=== PATIENT | male | born 1975 | race Caucasian/White ===

== ENCOUNTER 2018-10-14 11:00 | Inpatient (IN) | payer SELFPAY ==
[~2018-10-14] VITALS: Ht 172.7 cm; Wt 97.1 kg
[2018-10-14 11:13] VITALS: Ht 172.7 cm; Wt 97.1 kg
[2018-10-14 13:30] LABS: BASOPHIL % 0.2 % (0-2); PLATELET COUNT 236 x10^3mcL (130-400); RED CELL DISTRIBUTION WIDTH 12.9 % (11.5-14.5)
[2018-10-14 13:47] LABS: CALCIUM 8.7 mg/dL (8.5-10.1); CARBON DIOXIDE 26.2 mmol/L (21-32); CHLORIDE SERUM 91 mmol/L (98-107); GFR1 > 60 mL/min; GLUCOSE SERUM 144 mg/dL (74-106); POTASSIUM SERUM 3.4 mmol/L (3.5-5.1); SODIUM SERUM 128 mmol/L (136-145)
[2018-10-14 13:57] LABS: ALKALINE PHOSPHATASE 85 U/L (46-116); ALT/SGPT 94 U/L (16-63); AST/SGOT 65 U/L (15-37); BILIRUBIN TOTAL 0.8 mg/dL (0.20-1.00)
[2018-10-14 13:58] LABS: ALBUMIN 3.3 g/dL (3.4-5.0); TOTAL PROTEIN, SERUM 8.3 g/dL (6.4-8.2)
[2018-10-14 14:27] LABS: microscopic required? YES; urine erythrocyte 2+ (NEGATIVE)
[2018-10-14 16:32] LABS: MAGNESIUM 2.4 mg/dL (1.8-2.4)
[2018-10-14 16:33] LABS: AMPHETAMINE QUAL UR NONE DETECTED (See below)
[2018-10-14 17:01] VITALS: BP 131/89
[2018-10-14 22:00] VITALS: BP 117/70
[2018-10-15 06:37] LABS: CALCIUM 8.4 mg/dL (8.5-10.1); CARBON DIOXIDE 25.4 mmol/L (21-32); CHLORIDE SERUM 102 mmol/L (98-107); CREATININE SERUM 0.9 mg/dL (0.7-1.3); GFR1 > 60 mL/min; GLUCOSE SERUM 154 mg/dL (74-106); MAGNESIUM 2.6 mg/dL (1.8-2.4); PHOSPHOROUS 3.1 mg/dL (2.5-4.9); POTASSIUM SERUM 4.3 mmol/L (3.5-5.1); SODIUM SERUM 137 mmol/L (136-145)
[2018-10-15 06:59] LABS: BASOPHIL % 0.2 % (0-2); PLATELET COUNT 223 x10^3mcL (130-400); RED CELL DISTRIBUTION WIDTH 13.1 % (11.5-14.5)
[2018-10-15 08:46] VITALS: BP 121/84
[2018-10-15 16:39] VITALS: BP 131/97
[2018-10-15 19:15] VITALS: BP 128/88
[2018-10-16 05:19] VITALS: BP 127/81
[2018-10-16 06:45] LABS: CALCIUM 8.8 mg/dL (8.5-10.1); CARBON DIOXIDE 25.5 mmol/L (21-32); CHLORIDE SERUM 103 mmol/L (98-107); CREATININE SERUM 0.7 mg/dL (0.7-1.3); GFR1 > 60 mL/min; GLUCOSE SERUM 125 mg/dL (74-106); MAGNESIUM 2.3 mg/dL (1.8-2.4); PHOSPHOROUS 3.8 mg/dL (2.5-4.9); POTASSIUM SERUM 3.8 mmol/L (3.5-5.1); SODIUM SERUM 136 mmol/L (136-145)
[2018-10-16 07:51] LABS: BASOPHIL % 0.3 % (0-2); PLATELET COUNT 266 x10^3mcL (130-400); RED CELL DISTRIBUTION WIDTH 13.3 % (11.5-14.5)
[2018-10-16 08:41] VITALS: BP 134/92
[2018-10-16] MEDS ORDERED: LEVAQUIN750 MG PO (10:22)
[2018-10-16] MEDS ORDERED: CHILDREN'S ROB118 M1 PO (10:25)
[2018-10-16 11:03] VITALS: BP 134/92
[2018-10-16 15:17] VITALS: BP 135/97
== END 2018-10-16 17:19 | disposition home or self-care (01) | DRG 194 ==
LOC: ED 11:00 → MU 14:50
PROVIDERS: Emergency Medicine; ADMIT Family Medicine
DX: J18.9 Pneumonia, unspecified organism (principal); E87.1 Hypo-osmolality and hyponatremia; E44.1 Mild protein-calorie malnutrition; J98.11 Atelectasis; R31.9 Hematuria, unspecified; E87.6 Hypokalemia; R74.0 Nonspecific elevation of levels of transaminase and lactic acid dehydrogenase [LDH]; E11.65 Type 2 diabetes mellitus with hyperglycemia; E66.9 Obesity, unspecified; Z68.32 Body mass index [BMI] 32.0-32.9, adult
CPT/HCPCS: 82962; 83880; 85378; 87804; 94150; G0480; J0456; J0696; J1885; J2270; J2765; J7030; J7050; J7620; Q0092; Q9967